=== PATIENT | male | born 1995 | race Caucasian/White ===

== ENCOUNTER 2017-09-18 18:12 | Emergency (ER) | payer SELFPAY ==
[~2017-09-18] VITALS: Ht 175.2 cm; Wt 74.8 kg
[2017-09-18 18:12] VITALS: BP 120/57
[~2017-09-18 18:12] MED LIST: BACTRIM DS 8001 TAB PO; BENADRYL25 MG PO; CLARITIN10 MG PO; KEFLEX500 M1 PO; LIDEX 0.05% GEL60 GM PO; LIDEX0.05% T; MEDROL DOSEPAK4 MG PO; MOTRIN600 MG PO; MOTRIN800 MG PO; PREDNISONE10 MG PO
[2017-09-18 18:57] LABS: HEMOGLOBIN 15.2 g/dl (14.0-18.0); MEAN CELL VOLUME 87.6 fl (80.0-94.0); MEAN PLATELET VOLUME 9.8 fl (9.6-12.3); PLATELET COUNT AUTOMATED 203 10*3/uL (130-400); RED BLOOD COUNT 5.25 10*6/uL (4.50-5.90); RED CELL DISTRI WIDTH 12.6 % (0-14.5); WHITE BLOOD COUNT 5.7 10*3/uL (4.8-10.8)
[2017-09-18 19:12] LABS: ALBUMIN 4.1 gm/dl (3.1-4.5); ALKALINE PHOSPHATASE 80 U/L (45-117); BUN 14 mg/dl (7-24); CHLORIDE 107 mmol/L (98-107); CREATININE 1.08 mg/dL (0.70-1.30); POTASSIUM 4.2 mmol/L (3.5-5.1); SGOT/AST 16 IU/L (3-35); SGPT/ALT 29 U/L (12-78); SODIUM 142 mmol/L (136-145); TOTAL PROTEIN 7.2 gm/dL (6.4-8.2)
[2017-09-18 19:16] LABS: ATYPICAL LYMPHS 2 % (0-0); PLATELET SUFFICIENCY NORMAL (NORMAL); TOTAL CELLS COUNTED 100 #CELLS
[2017-09-18 20:45] LABS: BILIRUBIN NEGATIVE (NEGATIVE); BLOOD NEGATIVE (NEGATIVE); CLARITY CLEAR (CLEAR); COLOR YELLOW (YELLOW); GLUCOSE NEGATIVE (NEGATIVE); KETONE NEGATIVE (NEGATIVE); LEUKO ESTERASE NEGATIVE (NEGATIVE); NITRITE NEGATIVE (NEGATIVE); SPECIFIC GRAVITY <= 1.005 (1.005-1.030)
[2017-09-18 20:51] LABS: BACTERIA 3+; EPITHELIAL CELLS 0-2; RBC 0-2 rbc/hpf (0-2); WBC 0-2 wbc/hpf (0-5)
[2017-09-18] MEDS ORDERED: CIPRO500 MG PO (20:59)
== END 2017-09-18 23:19 | disposition home or self-care (01) ==
LOC: ED 18:12
PROVIDERS: Physician Assistant
DX: R59.0 Localized enlarged lymph nodes (principal); Z88.6 Allergy status to analgesic agent

== ENCOUNTER 2022-10-19 22:08 | Emergency (ER) | payer OTHER ==
[~2022-10-19] VITALS: Ht 165.1 cm; Wt 74.8 kg
[~2022-10-19 22:08] MED LIST changes: +CIPRO500 MG PO
[2022-10-19 22:20] VITALS: BP 148/86
== END 2022-10-19 22:25 | disposition home or self-care (01) ==
LOC: ED 22:08
DX: Z00.00 Encounter for general adult medical examination without abnormal findings (principal); Z88.6 Allergy status to analgesic agent; Z79.2 Long term (current) use of antibiotics

== ENCOUNTER 2023-06-30 20:16 | Emergency (ER) | payer OTHER ==
[~2023-06-30] VITALS: Ht 175.2 cm; Wt 79.4 kg
[2023-06-30 20:34] VITALS: BP 128/62
[2023-06-30] MEDS ORDERED: IBUPROFEN600 MG PO (22:48)
== END 2023-06-30 23:15 | disposition home or self-care (01) ==
LOC: ED 20:16
DX: S89.92XA Unspecified injury of left lower leg, initial encounter (principal); Z88.6 Allergy status to analgesic agent; Z98.890 Other specified postprocedural states; W17.89XA Other fall from one level to another, initial encounter; Y93.39 Activity, other involving climbing, rappelling and jumping off; Y92.89 Other specified places as the place of occurrence of the external cause; Y99.8 Other external cause status

== ENCOUNTER 2023-10-12 15:26 | Emergency (ER) | payer SELFPAY ==
[~2023-10-12] VITALS: Ht 175.2 cm; Wt 77.1 kg
[~2023-10-12 15:26] MED LIST changes: +IBUPROFEN600 MG PO
[2023-10-12 15:35] VITALS: BP 141/57
[2023-10-12] MEDS ORDERED: AMOX-CLAV 875-1 EACH PO (16:26)
== END 2023-10-12 16:25 | disposition home or self-care (01) ==
LOC: ED 15:26
DX: J32.9 Chronic sinusitis, unspecified (principal); J40 Bronchitis, not specified as acute or chronic; R51.9 Headache, unspecified; Z88.6 Allergy status to analgesic agent; Z98.890 Other specified postprocedural states

== ENCOUNTER 2024-06-07 11:34 | Emergency (ER) | payer SELFPAY ==
[~2024-06-07] VITALS: Wt 77.1 kg
[~2024-06-07 11:34] MED LIST changes: +AMOX-CLAV 875-1 EACH PO
[2024-06-07 11:45] VITALS: BP 134/61
[2024-06-07] MEDS ORDERED: Acetaminophen/Hydrocodone 5 MG/325 MG TABLET PO ONE (13:30)
[2024-06-07] MEDS ORDERED: NAPROSYN500 MG PO (14:55)
== END 2024-06-07 15:11 | disposition home or self-care (01) ==
LOC: ED 11:34
DX: S93.401A Sprain of unspecified ligament of right ankle, initial encounter (principal); Z88.6 Allergy status to analgesic agent; X50.1XXA Overexertion from prolonged static or awkward postures, initial encounter; Y93.89 Activity, other specified; Y92.89 Other specified places as the place of occurrence of the external cause; Y99.8 Other external cause status

== ENCOUNTER 2024-09-29 14:24 | Emergency (ER) | payer SELFPAY ==
[~2024-09-29] VITALS: Ht 175.2 cm; Wt 70.3 kg
[~2024-09-29 14:24] MED LIST changes: +NAPROSYN500 MG PO
[2024-09-29 14:32] VITALS: BP 141/95
[2024-09-29] MEDS ORDERED: Metoclopramide Hydrochloride 10 MG/2 ML VIAL IV ONE (14:45)
[2024-09-29] MEDS ORDERED: diphenhydrAMINE hydrochloride 50 MG/ML VIAL IV ONE (14:45)
[2024-09-29] MEDS ORDERED: SODIUM CHLORIDE 0.9% 1,000 ML IV ONE (14:45)
[2024-09-29 14:56] LABS: BASO # 0.1 10*3/uL (0.0-0.1); BASO % 0.9 % (0.0-1.0); EOS # 0.7 10*3/uL (0.0-0.4); EOS % 7.0 % (1.0-4.0); MEAN CELL VOLUME 87.7 fl (80.0-94.0); MEAN CORPUSCULAR HGB 28.2 pg (27.0-31.0); MEAN PLATELET VOLUME 9.4 fl (9.6-12.3); MONO # 0.9 10*3/uL (0.1-1.0); MONO % 8.7 % (3.0-9.0); NEUT # 6.3 10*3/uL (2.3-7.9); NEUT % 61.3 % (47.0-73.0); NUCLEATED RED BLOOD CELL 0.0 % (0.0-0.0); NUCLEATED RED BLOOD CELL 0.0 10*3/uL (0.0-0.0); PLATELET COUNT AUTOMATED 252 10*3/uL (130-400); RED CELL DISTRI WIDTH 13.1 % (0-14.5)
[2024-09-29 15:14] LABS: BUN 22 mg/dl (9-23)
[2024-09-29] MEDS ORDERED: REGLAN10 M1 PO (15:29)
== END 2024-09-29 15:39 | disposition home or self-care (01) ==
LOC: ED 14:24
PROVIDERS: Emergency Medicine
DX: R11.2 Nausea with vomiting, unspecified (principal); Z20.822 Contact with and (suspected) exposure to COVID-19; R05.9 Cough, unspecified; R50.9 Fever, unspecified; Z88.6 Allergy status to analgesic agent

== ENCOUNTER 2024-10-27 18:01 | Emergency (ER) | payer OTHER ==
[~2024-10-27] VITALS: Ht 175.2 cm; Wt 77.1 kg
[~2024-10-27 18:01] MED LIST changes: +REGLAN10 M1 PO
[2024-10-27 18:10] VITALS: BP 120/64
[2024-10-27] MEDS ORDERED: OXYCODONE HCL (IR) 5 MG TAB PO ONE (18:15)
[2024-10-27] MEDS ORDERED: MELOXICAM15 MG PO (18:16)
== END 2024-10-27 18:47 | disposition home or self-care (01) ==
LOC: ED 18:01
DX: S93.401A Sprain of unspecified ligament of right ankle, initial encounter (principal); Z88.8 Allergy status to other drugs, medicaments and biological substances; Z98.890 Other specified postprocedural states; X50.1XXA Overexertion from prolonged static or awkward postures, initial encounter; Y93.89 Activity, other specified; Y92.89 Other specified places as the place of occurrence of the external cause; Y99.8 Other external cause status

== ENCOUNTER 2024-11-23 12:10 | Emergency (ER) | payer SELFPAY ==
[~2024-11-23] VITALS: Ht 175.2 cm; Wt 72.6 kg
[~2024-11-23 12:10] MED LIST changes: +MELOXICAM15 MG PO
[2024-11-23 12:17] VITALS: BP 136/77
[2024-11-23] MEDS ORDERED: Ondansetron4 MG PO (12:28)
== END 2024-11-23 12:30 | disposition home or self-care (01) ==
LOC: ED 12:10
DX: A08.4 Viral intestinal infection, unspecified (principal); Z88.8 Allergy status to other drugs, medicaments and biological substances

== ENCOUNTER 2024-12-04 14:41 | Emergency (ER) | payer SELFPAY ==
[~2024-12-04 14:41] MED LIST changes: +Ondansetron4 MG PO
[2024-12-04 14:46] VITALS: BP 142/82
[2024-12-04] MEDS ORDERED: AVPAK AZITHROM250 M1 PO (16:23)
[2024-12-04] MEDS ORDERED: PREDNISONE20 M1 PO (16:23)
[2024-12-04] MEDS ORDERED: AZITHROMYCIN 250 MG TAB PO ONE (16:25)
[2024-12-04] MEDS ORDERED: Water, Sterile 10 ML VIAL ONE (16:53)
== END 2024-12-04 16:26 | disposition home or self-care (01) ==
LOC: ED 14:41
DX: J40 Bronchitis, not specified as acute or chronic (principal); Z88.8 Allergy status to other drugs, medicaments and biological substances

== ENCOUNTER 2024-12-07 14:39 | Emergency (ER) | payer SELFPAY ==
[~2024-12-07 14:39] MED LIST changes: +AVPAK AZITHROM250 M1 PO; +PREDNISONE20 M1 PO
[2024-12-07 15:06] VITALS: BP 00/00
== END 2024-12-07 15:08 | disposition home or self-care (01) ==
LOC: ED 14:39
DX: Z00.00 Encounter for general adult medical examination without abnormal findings (principal); Z88.1 Allergy status to other antibiotic agents